=== PATIENT | male | born 2000 | race Caucasian/White ===

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

== ENCOUNTER → 2018-06-15 | Outpatient (CLI) | payer BC | LOC: FIMAGING 07:25 | PROVIDERS: ATTEND Physician Assistant | DX: R10.84 Generalized abdominal pain (principal) ==